=== PATIENT | male | born 1960 | race Two or more races ===

== ENCOUNTER 2018-10-24 10:03 | Outpatient (CLI) | payer OTHER ==
--- NOTE | 2018-10-24 15:30 | Consultation ---
DATE OF CONSULTATION: 10/24/2018 CONSULTING PHYSICIAN: Phil Burden M.D. CHIEF COMPLAINT: Referred for screening colonoscopy. HISTORY OF PRESENT ILLNESS: This is a 57-year-old male with extensive family history of colon cancer. Mother and grandmother both had colon cancer. Last colonoscopy was 5 years ago. He was told every 5 years. He was referred to us for repeat colonoscopy. PAST MEDICAL HISTORY: 1. GERD. 2. Depression. 3. Anxiety. 4. Lower extremity blood clot. 5. Constipation. PAST SURGICAL HISTORY: None. ALLERGIES: None. MEDICATIONS: Please see medication reconciliation list. SOCIAL HISTORY: The patient denies any tobacco, alcohol, or illicit drug abuse. FAMILY HISTORY: Mother and grandmother had colon cancer. REVIEW OF SYSTEMS: A 10-point review of systems was performed and pertinent positives in HPI. PHYSICAL EXAMINATION: GENERAL: A well-developed male in no acute distress. HEENT: Normocephalic and atraumatic. Sclerae anicteric. NECK: Supple. No evidence of obvious lymphadenopathy. CARDIOVASCULAR: Regular rate and rhythm. Plus S1 and S2. No obvious murmur. LUNGS: Clear to auscultation bilaterally. ABDOMEN: Positive bowel sounds. Soft and nontender. No rebound. No guarding. No peritoneal sign. EXTREMITIES: No cyanosis, no clubbing, no edema. ASSESSMENT AND PLAN: Extensive family history of colon cancer in first-degree relatives. Need for repeat colonoscopy. The patient was given the prep for colonoscopy and instruction. The patient was informed that we need to wait for the authorization and as soon as it is obtained, we are going to do it. Also, we told the patient to stop the Eliquis 2 days prior to the procedure for possible polypectomy. Phil Burden M.D. DR: PALOMA JOB#: [id number] CC:
== END 2018-10-24 12:00 | disposition home or self-care (01) ==
LOC: PAN 10:03
DX: K21.9 Gastro-esophageal reflux disease without esophagitis (principal); F32.9 Major depressive disorder, single episode, unspecified; F41.9 Anxiety disorder, unspecified; Z86.718 Personal history of other venous thrombosis and embolism; Z79.01 Long term (current) use of anticoagulants; Z80.0 Family history of malignant neoplasm of digestive organs